=== PATIENT | male | born 2000 | race Caucasian/White ===

== ENCOUNTER 2020-11-10 15:53 | Emergency (ER) | payer OTHER, SELFPAY ==
[2020-11-10 15:54] VITALS: BP 140/93; PULSE 110; RESP 16; TEMP 37.4; O2SAT 100; BMI 60.0
[2020-11-10 16:30] LABS: Add Manual Diff / Slide Review NO; Basophils Absolute Auto 100 /uL (0-100); Basophils Percent Auto 0.6 % (0-2); Eosinophils Absolute Auto 100 /uL (0-450); Eosinophils Percent Auto 0.7 % (2-4); Hemoglobin 14.5 g/dL (13.5-17.5); Lymphocytes Absolute Auto 1900 /uL (1100-4500); Lymphocytes Percent Auto 15.8 % (25-40); Mean Corpuscular HGB Conc 33.6 % (30-36); Mean Corpuscular Hemoglobin 26.2 PG (26-34); Mean Corpuscular Volume 77.8 fL (80-100); Monocytes Absolute Auto 800 /uL (0-900); Monocytes Percent Auto 7.1 % (3-14); Neutrophils Absolute Auto 9000 /uL (1500-7000); Neutrophils Percent Auto 75.8 % (50-75); Platelet Count 324 X10^3/uL (150-400); Red Blood Cell Count 5.53 X10^6/uL (4.5-5.9); Red Cell Distribution Width 14.7 % (11.6-14.8); White Blood Cell Count 11.8 X10^3/uL (4.5-11.0)
--- NOTE | 2020-11-10 16:39 | ED_ITS ---
HPI - GI Bleed General Chief complaint: GI Bleed Stated complaint: RECTAL BLEEDING Time Seen by Provider: 11/10/20 15:58 Source: patient Mode of arrival: Ambulatory Limitations: no limitations History of Present Illness HPI Narrative: 20-year-old male nonsmoker with noncontributory medical history presents at the request of the walk-in clinic for evaluation of few episodes of painless bright red bleeding over the course of the day. He denies any symptoms and is not dizzy, weak or lightheaded. He denies any abdominal pain or rectal pain. He denies any history of the same. He denies any recent medication or dietary change. He denies any fever or chills. He has had no straining on the toilet or other symptoms. He had a bowel movement with some bright red blood yesterday and has had bowel movements that were normal since without any obvious blood. He had presented initially to the walk-in clinic and had a rectal exam without any obvious sign of internal or external hemorrhoid, his Hemoccult reported to be positive. He does not have an extensive alcohol history and denies use of blood thinners MD complaint: blood streaked stool Onset (ago): day(s) Severity: mild Relieving factors: none Associated symptoms: denies other symptoms Review of Systems Constitutional Constitutional: Denies chills, Denies fatigue, Denies fever(s), Denies frequent falls, Denies lethargy and Denies weakness Eyes Eyes: Denies change in vision, Denies eye discharge, Denies irritation and Denies loss of vision ENT Ears, Nose, Mouth, and Throat: Denies change in voice, Denies dizziness, Denies neck pain, Denies sore throat and Denies throat swelling Cardiovascular Cardiovascular: Denies chest pain, Denies irregular heart rhythm, Denies lightheadedness, Denies palpitations, Denies dyspnea, Denies dyspnea on exertion and Denies orthopnea Respiratory Respiratory: Denies cough, Denies dyspnea, Denies dyspnea on exertion and Denies wheezing Gastrointestinal Gastrointestinal: Denies abdominal pain, Denies change in bowel habits, Denies diarrhea, Denies nausea and Denies vomiting Musculoskeletal Musculoskeletal: Denies neck pain and Denies numbness Integumentary/Breasts Skin/Breast: Denies pruritus, Denies erythema, Denies rash and Denies wounds Neurologic Neurologic: Denies behavioral changes, Denies confusion, Denies dizziness, Denies frequent falls, Denies loss of vision, Denies numbness and Denies weakness Psychiatric Psychiatric: Denies anxiety, Denies behavioral changes, Denies confusion, Denies depression, Denies homicidal ideation and Denies suicidal ideation Endocrine Endocrine: Denies fatigue, Denies flushing and Denies palpitations Hematologic/Lymphatic Hematologic/Lymphatic: Denies easy bruising Allergic/Immunologic Allergic/Immunologic: Denies urticaria, Denies throat swelling and Denies wheezing Patient History Social History Smoking Status: Never smoker Smoking Status: Never smoker Substance Use Type: does not use Exam Narrative Exam Narrative: GENERAL: [20] year old patient appears stated age. Well- nourished, well-developed patient, in mild distress. HEAD: Atraumatic. Normocephalic. EYES: Pupils equal round and reactive. Extraocular motions intact. No scleral icterus. No injection or drainage. ENT: Nose without bleeding, purulent drainage. Throat without erythema, tonsillar hypertrophy or exudate. Airway patent. NECK: Trachea midline. Non tender CARDIOVASCULAR: Regular rate and rhythm without murmurs, gallops, or rubs. RESPIRATORY: Clear to auscultation. Breath sounds equal bilaterally. No wheezes, rales, or rhonchi. GASTROINTESTINAL: Abdomen soft, non-tender, nondistended. EXTREMITIES: No edema or joint tenderness. BACK: Nontender without deformity or crepitance. No flank tenderness. NEURO: AOx3. SKIN: No rash or erythema of visible areas Initial Vital Signs Initial Vital Signs: Vital Signs Temperature 99.3 F 11/10/20 15:54 Pulse Rate 110 H 11/10/20 15:54 Respiratory Rate 16 11/10/20 15:54 Blood Pressure 140/93 H 11/10/20 15:54 Pulse Oximetry 100 11/10/20 15:54 Course Orders Ordered: ED Orders 11/10/20 16:20 Basic Metabolic Panel Stat Complete Blood Count AUTO DIFF Stat Type and Screen Stat Vital Signs Vital signs: Vital Signs - 8 hr 11/10/20 15:54 Temperature 99.3 F Pulse Rate 110 H Respiratory Rate 16 Blood Pressure 140/93 H Pulse Oximetry 100 MDM - GI Bleed Lab Data Result diagrams: 11/10/20 16:20 11/10/20 16:20 Labs: Lab Results 11/10/20 11/10/20 11/10/20 Range/Units 16:20 16:20 16:20 WBC 11.8 H (4.5-11.0) X10^3/uL RBC 5.53 (4.5-5.9) X10^6/uL Hgb 14.5 (13.5-17.5) g/dL Hct 43.0 (41-53) % MCV 77.8 L (80-100) fL MCH 26.2 (26-34) PG MCHC 33.6 (30-36) % RDW 14.7 (11.6-14.8) % Plt Count 324 (150-400) X10^3/uL Neut % (Auto) 75.8 H (50-75) % Lymph % (Auto) 15.8 L (25-40) % [place] % (Auto) 7.1 (3-14) % Eos % (Auto) 0.7 L (2-4) % Baso % (Auto) 0.6 (0-2) % Neut # (Auto) 9000 H (0201-3858) /uL Lymph # (Auto) 1900 (5078-2978) /uL [place] # (Auto) 800 (0-900) /uL Eos # (Auto) 100 (0-450) /uL Baso # (Auto) 100 (0-100) /uL Sodium 143 (137-145) mmol/L Potassium 3.5 (3.4-5.1) mmol/L Chloride 107 (98-107) mmol/L Carbon Dioxide 24 (22-32) mmol/L BUN 15 (9-20) mg/dL Creatinine 0.82 (0.66-1.25) mg/dL Estimated GFR > 60.0 (>60) mL/min BUN/Creatinine Ratio 18.3 (6-22) Glucose 111 H (70-100) mg/dL Calcium 9.7 (8.4-10.2) mg/dL Blood Type O Negative Antibody Screen Negative Discharge Plan Departure Patient Disposition: Home Clinical Impression: Bright red rectal bleeding Instructions: Gastrointestinal Bleeding Activity Restrictions/Additional Instructions: *You have been diagnosed with [painless rectal bleeding with very reassuring physical exam, vital signs and blood work] *What to do: *Please continue to take your regular medications as directed. [ ] New medication prescriptions sent to your pharmacy: [ ] [ ] New medication written as a paper prescription [x ] No new medications given *Please follow up with the general surgeon listed below in 2-3 days, call for an appointment. Let them know you were seen in the Emergency Department and that we ask that you be seen in follow up. We will electronically transmit a record of today's note if your PCP is in our system * please consider a clear liquid diet for the next few days and advance as tolerated *Return to Emergency Department if you should have any new, worsening or concerning symptoms, such as [fever greater than 101 F, shaking chills, worsening bleeding, dizziness, weakness, lightheadedness worsening pain, persistent vomiting or other bothersome symptoms] Referrals: [facility] [Outside] Omari Colin MD [Physician] - Janet Rascon MD [Physician] -
[2020-11-10 16:49] LABS: BUN Creatinine Ratio 18.3 (6-22); Blood Urea Nitrogen 15 mg/dL (9-20); Calcium 9.7 mg/dL (8.4-10.2); Carbon Dioxide 24 mmol/L (22-32); Chloride 107 mmol/L (98-107); Estimated Glomerular Filt Rate > 60.0 mL/min (>60); Glucose 111 mg/dL (70-100); HEMOLYSIS < 15 (0-50); Potassium 3.5 mmol/L (3.4-5.1); Sodium 143 mmol/L (137-145)
[2020-11-10 16:57] VITALS: BP 140/90; PULSE 105; RESP 16; O2SAT 99
== END 2020-11-10 16:57 | disposition home or self-care (01) ==
PROVIDERS: Emergency Provider Emergency Medicine
DX: K62.5 Hemorrhage of anus and rectum (principal)
CPT/HCPCS: 36415; 80048; 85025; 86850; 86900; 86901; 99283

== ENCOUNTER → 2021-02-09 11:49 | Outpatient (CLI) | payer OTHER, SELFPAY ==
[2021-02-09 12:49] LABS: Hematocrit 41.7 % (41-53); Hemoglobin 14.2 g/dL (13.5-17.5); Mean Corpuscular Hemoglobin 26.6 PG (26-34); Mean Corpuscular Volume 78.3 fL (80-100); Platelet Count 296 X10^3/uL (150-400); Red Blood Cell Count 5.33 X10^6/uL (4.5-5.9); Red Cell Distribution Width 15.2 % (11.6-14.8); White Blood Cell Count 10.2 X10^3/uL (4.5-11.0)
[2021-02-09 13:06] LABS: Hemoglobin A1C% w Est Avg Glu 5.1 % (4.0-6.0)
[2021-02-09 13:23] LABS: Alanine Aminotransferase 46 IU/L (<50); Albumin 4.4 g/dL (3.5-5.0); Albumin Globulin Ratio 1.3 (1.0-2.8); Alkaline Phosphatase 97 U/L (38-126); Aspartate Aminotransferase 49 IU/L (17-59); BUN Creatinine Ratio 15.3 (6-22); Bilirubin Total 0.7 mg/dL (0.2-1.3); Blood Urea Nitrogen 11 mg/dL (9-20); Calcium 9.8 mg/dL (8.4-10.2); Carbon Dioxide 23 mmol/L (22-32); Chloride 109 mmol/L (98-107); Cholesterol 178 mg/dL (140-199); Estimated Glomerular Filt Rate > 60.0 mL/min (>60); Globulin 3.5 g/dL (1.7-4.1); Glucose 111 mg/dL (70-100); HDL Cholesterol 45 mg/dL (40-60); HEMOLYSIS < 15 (0-50); LDL Cholesterol Calculated 114 mg/dL (<100); Potassium 3.8 mmol/L (3.4-5.1); Sodium 141 mmol/L (137-145); Total Protein 7.9 g/dL (6.3-8.2); Triglycerides 95 mg/dL (35-150)
== END ==
PROVIDERS: PCP Registered Nurse Diabetes Educator; Referring Provider Registered Nurse Diabetes Educator; Visit Provider Registered Nurse Diabetes Educator
DX: E66.9 Obesity, unspecified (principal); Z68.43 Body mass index [BMI] 50.0-59.9, adult
CPT/HCPCS: 36415; 80053; 80061; 83036; 84443; 85027

== ENCOUNTER → 2021-04-06 12:30 | Outpatient (CLI) | payer OTHER, SELFPAY ==
--- NOTE | 2021-04-06 12:39 | DIET.PN1 ---
Dietary Progress Note Assessment: 21y M attending RD visit for help with morbid obesity. 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 Usual Day (working): wakes 6am and showers either skips breakfast or protein bar 24oz water shake (2 scoops Registered Respiratory Therapist Supps) 24oz water shake (1 scoop Registered Respiratory Therapist Supps) noon- air-fried chicken c BBQ sauce, sometimes fruit or protein bar, c 16oz water finishes work then goes home 4:30pm- often goes to gas station to get breanne sized candy bar starts sedentary time watches tv or plays video game does family dinner- protein, veg, starch or will eat some junk food or 2 hotdogs on buns c ketchup, mustard, relish eats a lot at night- right after dinner, a bedtime snack, or sometimes stays up too late so eats Physical activity: 8k steps Usual Day (non-working): wakes 10am breakfast- nachos, bowl cereal, protein bar sits at desk and plays video games all day has desk in garage so brings batch of food to garage and eats until needs to get more food often plays video games 11am-3am but if reasonable stops at 9-10pm hot dogs, nachos c polo neida cheese and salsa, chips, sandwiches No physical activity on non-work days. Doesn't like Fruits and Veggies: broccoli, asparagus, [place] sprouts, doesn't like the yogurt or apple sauce texture likes spinach, maryjane lettuce, kale, green beans, carrots, lloyd peppers, cucumbers, tomatoes, salsa, onions, garlic Protein foods likes: beef chicken, pork, collins, turkey, fish all kinds, peanut butter, blue trevor flavored almonds, cheese, 2% milk likes to use air fryer RD Impression: Pt has sedentary hobby (videogames) which is also his social time with friends from around the [place]. His sedentary hobby which he participates in for 6+ hours every day, drinking 1,000kcals soda, and mindless snacking while playing games all contributing to pts morbid obesity. Pt likes variety of healthy foods including variety of fruits and veggies, is willing to prepare food for self-up to a point- convenience is biggest barrier. Pt has reasonable clear goal to get down to 280#, pt is motivated. Pts cutting soda is saving him 1,000kcals/d with weight loss of 15# over 8w. Goals of meeting c pt over 6 visits include: nutrition education on balanced plate eating, portion control with mindfulness around calories throughout the day being sure to front load day to reduce night time cravings. Nutrition Diagnosis: morbid obesity r/t undesirable food choices and physical inactivity aeb BMI 58.1, pt has been >300# since 15yo, pt spends 6+ hrs playing video games daily while constantly snacking, high intake refined carbohydrates, low intake F/V. Interventions: 1. Educated pt on balanced plate eating including 1/4 PRO, 1/4 CHO, 1/2 fruit and non-starchy veggies. Worked c pt using food models to build commonly eaten items and collaborated on how to adjust composition to find better balance. 2. Set pts kcal level at 2,400/day to spur 2-3# weight loss each week. Using meal planning template, allotted 400kcals for breakfast, 600kcals for lunch, 800kcals for dinner and 500 kcals for snacks. Looked up kcal levels of commonly eaten foods for pt. Pt will work within this framework for next month at which point we can adjust. EER: 2400calories (1,000kcal deficit to induce weight loss) Monitoring/Evaluations: F/U in 4w to assess progress and problem solve barriers. Pt would like to get Vitamin D level tested related to psoriasis-does not supplement, little time spent outdoors. Electronically Signed by: Monae Hsieh 04/06/21 12:39 Clinical Dietitian [address] [id number]
[2021-04-06 13:16] VITALS: BMI 58.1
== END ==
PROVIDERS: PCP Registered Nurse Diabetes Educator; Referring Provider Registered Nurse Diabetes Educator; Visit Provider Registered Nurse Diabetes Educator
DX: E66.01 Morbid (severe) obesity due to excess calories (principal); Z68.43 Body mass index [BMI] 50.0-59.9, adult; Z71.3 Dietary counseling and surveillance
CPT/HCPCS: 97802

== ENCOUNTER → 2021-05-04 11:19 | Outpatient (CLI) | payer OTHER, SELFPAY ==
--- NOTE | 2021-05-04 11:32 | DIET.PN1 ---
Dietary Progress Note Assessment: 21y M attending 4w RD f/u for morbid obesity. Ht: 5'10 Wt: 396# (-10# in 1mo, -25# in 10w) BMI: 56.8 UBW: 421# Pt making excellent progress in nutrition care plan. Pt continues to avoid soda. Pt did admit to eating 16 small candies at Halloween but stopped consuming candy after the holiday was over so feels proud of himself. Pt has followed through with several interventions we set last month. Pt is focusing on eating meals instead of grazing throughout the day. He is following plate balance and experimenting with new food products. Pt tried shiratake noodles- into spaghetti, loves them. Very low calorie and high fiber important for both his weight and HLD. Pt preferring Angel's killer thin sliced bread to regular bread now. Pt is going to try chickpea noodles on reccs of his aunt. Pt started supplementing with Vitamin D daily, noticed he has not needed his psoriasis shampoo, does not really understand why his psoriasis is not flaring right now, but is very happy about this. Pt, his brother, and mother are all working on healthy eating. Pt feels this helps him make good choices and avoid not-so-good choices. Pt interested in starting an exercise routine, has weight training set at home, just hasn't started. Nutrition Diagnosis: ongoing morbid obesity r/t undesirable food choices and physical inactivity aeb BMI 58.1, pt has been >300# since 15yo, pt spends 6+ hrs playing video games daily while constantly snacking, high intake refined carbohydrates, low intake F/V. Interventions: 1. Reinforced pts progress thus far and changes made. 2. Introduced pt to hunger scale with goal of pt becoming more aware of true hunger and fullness as pt has historically snacked mindlessly. 3. Discussed pts desire to start working out. Walked through steps to begin routine together. Provided pt with behavior change worksheet in case he feels personal barriers to beginning or continuing exercise. Monitoring/Evaluations: f/u in 4w to continue education and problem solve barriers. Electronically Signed by: Monae Hsieh 05/04/21 11:32 Clinical Dietitian [address] [id number]
== END ==
PROVIDERS: PCP Registered Nurse Diabetes Educator; Referring Provider Registered Nurse Diabetes Educator; Visit Provider Registered Nurse Diabetes Educator
DX: E66.01 Morbid (severe) obesity due to excess calories (principal); Z68.43 Body mass index [BMI] 50.0-59.9, adult; Z71.3 Dietary counseling and surveillance
CPT/HCPCS: 97803

== ENCOUNTER → 2021-06-01 12:37 | Outpatient (CLI) | payer OTHER, SELFPAY ==
--- NOTE | 2021-06-01 12:53 | DIET.PN1 ---
Dietary Progress Note 21y M attending RD f/u for morbid obesity. Pt hovering around 395-400#, is still avoiding all soda, but felt he went backwards in progress since our last visit because of the and not working. Pt was ordering [employer]- Ca's is most common- he keeps installing and uninstalling it on his phone, choosing to use the sol when he is being lazy, generally in conjunction with long kayla sessions. Pt understands this is not a healthy choice and that realistically he could make something for himself in the 15-30 minutes he waits for fast food to be delivered. Discussed go to food for when he wants to order [employer]Dash: Kind Bars, [place] Cakes, chicken wings, honey crisp apples, sandwiches c thin sliced sourdough. Because pt usually orders chicken sandwich with fries, talked about finding a healthier chicken product to keep in freezer to pull out when tempted to order out. Intermittent use of Copier Repair Technician Supps. Discussed pt's default pattern when without work structure includes grazing on snacks and being in front of screen for 10+ hrs. Pt endorses staying up until 7am most days playing video games. Discussed exercise (walks and/or strength training) as way to build some structure into non-work days. Pt has equipment, discussed techniques with his dad and uncle over but has not started. Collaborated on plan to have pt and dad write out workout routine pt can follow for arm days, leg days, core days. F/u scheduled for during pts holiday break as way to check in on interventions. Electronically Signed by: Monae Hsieh 06/01/21 12:53 Clinical Dietitian [address] [address]
== END ==
PROVIDERS: PCP Registered Nurse Diabetes Educator; Referring Provider Registered Nurse Diabetes Educator; Visit Provider Registered Nurse Diabetes Educator
DX: E66.9 Obesity, unspecified (principal); Z71.3 Dietary counseling and surveillance
CPT/HCPCS: 97803

== ENCOUNTER → 2021-07-13 12:14 | Outpatient (CLI) | payer OTHER, SELFPAY ==
--- NOTE | 2021-07-13 12:19 | DIET.PN1 ---
Dietary Progress Note 21y M attending RD f/u for morbid obesity attending with mom. Pt current weight 392#, has been in high 380s, feeling good about his almost 30# weight loss thus far. Pt is counting calories, staying within his range, also has been weight training 4x/w for 5 weeks now. Pt feeling a difference in his posture and has been able to increase reps significantly. Pt has good support at home and is workout kade with mom in their home gym. Mom states she is impressed as pt is taking this all on himself and being accountable. Pt states a few slip ups with going back to work, some fast food meals and one full calorie soda. Pt would like to work one fast food meal per week into his meal plan as he has high temptation driving by fast food restaurants and feels complete avoidance is triggering to binge. Discussed strategies to avoid fast food including keeping snacks in car, driving alternate way to avoid main strip with fast food restaurants. Provided pt with body building meal plan to help support continued muscle to fat mass transformation and weight loss. F/u in 4w to assess progress and problem solve barriers. Pt feels meeting monthly with RD motivating for him, pt does NOT want to develop diabetes. Electronically Signed by: Monae Hsieh 07/13/21 12:19 Clinical Dietitian [address] [id number]
== END ==
PROVIDERS: PCP Registered Nurse Diabetes Educator; Referring Provider Registered Nurse Diabetes Educator; Visit Provider Registered Nurse Diabetes Educator
DX: E66.9 Obesity, unspecified (principal)
CPT/HCPCS: 97803

== ENCOUNTER → 2021-08-17 12:19 | Outpatient (CLI) | payer OTHER, SELFPAY ==
--- NOTE | 2021-08-17 12:46 | DIET.PN1 ---
Dietary Progress Note 21y M attending 5th monthly nutrition visit for help with morbid obesity. Pt weighs 389# today, down 33# from initiating care. Pt has hit plateau last month, however, this RD believes likely related to pt building new muscle mass masking fat loss. Pt strength training consistently 4d/w 30-40min each in home gym with his mom and brother. Pt really enjoys this activity and feels and sees the muscular changes especially in his shoulders and chest. Pt eating healthy dinners with family, using shiratake or chickpea noodles, mostly chicken. Pt limiting soda to one diet soda per week, no other caffeine. Pt eats fast food once per week. Pt still playing a lot of video games, socializing on a screen. Pt staying up until 3am again, has a meal around midnight, wondering if this is causing the lack of weight loss recently. Pt notices he has better eating habits when he has a regular work schedule. 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 Pt remains very motivated to continue healthy lifestyle and continue losing weight. Pt concerned we only have one more visit, feels monthly check ins with RD helpful for accountability, will ask PCP for insurance auth to see if we can get more visits. Pt has labs in 5w, we scheduled out f/u for after lab draw to see if we can fine tune any reccs based on new lab set. Interventions: 1. RD agrees pt should get PT job to help build a regular schedule. Pt is 21yo, RD encouraged pt to think about what skills he wants to build for future life. 2. Encouraged pt to add cardio to his weight training routine, will likely help him to burn more calories and burn more of his fat reserve. Encouraged 10 minutes stationary bike at start of workout and 10 minutes at workout midpoint. f/u in 6w to assess progress and problem solve barriers. Electronically Signed by: Monae Hsieh 08/17/21 12:46 Clinical Dietitian [address] [address]
== END ==
PROVIDERS: PCP Registered Nurse Diabetes Educator; Referring Provider Registered Nurse Diabetes Educator; Visit Provider Registered Nurse Diabetes Educator
DX: E66.01 Morbid (severe) obesity due to excess calories (principal); Z71.3 Dietary counseling and surveillance
CPT/HCPCS: 97803

== ENCOUNTER → 2021-09-18 12:34 | Outpatient (CLI) | payer OTHER, SELFPAY ==
[2021-09-18 14:12] LABS: Hemoglobin A1C% w Est Avg Glu 5.2 % (4.0-6.0)
[2021-09-18 14:59] LABS: Cholesterol 164 mg/dL (140-199); Glucose 103 mg/dL (70-100); HDL Cholesterol 42 mg/dL (40-60); LDL Cholesterol Calculated 104 mg/dL (<100); Triglycerides 89 mg/dL (35-150)
== END ==
PROVIDERS: PCP Registered Nurse Diabetes Educator; Referring Provider Registered Nurse Diabetes Educator; Visit Provider Registered Nurse Diabetes Educator
DX: R73.01 Impaired fasting glucose (principal)
CPT/HCPCS: 36415; 80061; 82947; 83036

== ENCOUNTER → 2021-10-05 12:18 | Outpatient (CLI) | payer OTHER, SELFPAY ==
--- NOTE | 2021-10-05 12:25 | DIET.PN1 ---
Dietary Progress Note RD Note: 1mo f/u for pt with borderline high cholesterol, impaired fasting glucose and morbid obesity (BMI 56). Pt recently got labs done, cholesterol slightly improved, FBG greatly improved 111 --> 103 with stable A1c at 5.2. Pt reports he gained 5# recently so back at 395#, attributes this to overeating and sedentary behavior. This weight gain spurred pt to start tracking in [employer] for calories in and out. Pt finds he eats about the same every day, but days he doesn't work out (3x/w) he does not burn nearly enough calories. Pt considering taking a walk on days he is not doing weight training. Pt doing well with weight training 4x/w, is intermittently riding stationary bike for 10min prior to workout based on our last conversation. Barrier to doing this is that his legs get tired. Pt and family alternating dinner cooking, they all focus on keto dinners, more or less. Pt has . Review of pts food log shows 1570-1812 calories in most days with macronutrient balance: 12-15% protein, 35-50% fat, 50% carbs. 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 He is eating breakfast at home then packing lunch but has cravings and habits built around grabbing take out/fast food after school. One meal on log showed 480 kcals in strawberry lemonade alone. Interventions: 1. Reinforced pts good behavior changes around exercise and newly tracking intake. Set goal to increase protein in diet, goal macros 25-35% pro, 35-50% fat, 30-40% cho. 2. Conducted behavior change counseling regarding habit of getting fast food after school. Pt will try several strategies to reduce this craving and habit including: packing larger lunch with more protein and protein snack, choose a few safe items from drug store or restaurant to order if he finds himself in line- including unsweet iced tea c lemon, iced green tea, beef jerky. Pt will experiment and report back next visit what seems to work and what doesn't. Monitoring/Evaluations: f/u in 5w to continue nutrition counseling Electronically Signed by: Monae Hsieh 10/05/21 12:25 Clinical Dietitian [address] [address]
== END ==
PROVIDERS: PCP Registered Nurse Diabetes Educator; Referring Provider Registered Nurse Diabetes Educator; Visit Provider Registered Nurse Diabetes Educator
DX: E66.01 Morbid (severe) obesity due to excess calories (principal); R73.01 Impaired fasting glucose; E78.00 Pure hypercholesterolemia, unspecified; Z68.43 Body mass index [BMI] 50.0-59.9, adult; Z71.3 Dietary counseling and surveillance
CPT/HCPCS: 97803

== ENCOUNTER → 2022-03-09 10:29 | Outpatient (CLI) | payer OTHER, SELFPAY ==
[2022-03-09 12:24] LABS: Cholesterol 151 mg/dL (140-199); Glucose 100 mg/dL (70-100); HDL Cholesterol 43 mg/dL (40-60); LDL Cholesterol Calculated 92 mg/dL (<100); Triglycerides 80 mg/dL (35-150)
[2022-03-09 12:33] LABS: Hemoglobin A1C% w Est Avg Glu 5.2 % (4.0-6.0)
== END ==
PROVIDERS: PCP Registered Nurse Diabetes Educator; Referring Provider Registered Nurse Diabetes Educator; Visit Provider Registered Nurse Diabetes Educator
DX: E78.5 Hyperlipidemia, unspecified (principal); R73.01 Impaired fasting glucose
CPT/HCPCS: 36415; 80061; 82947; 83036

== ENCOUNTER → 2022-05-28 09:04 | Outpatient (CLI) | payer OTHER, SELFPAY ==
--- NOTE | 2022-05-28 09:05 | DI.RAD.S_ITS ---
PROCEDURE: XR CHEST 2V INDICATIONS: Cough TECHNIQUE: 2 views of the chest were acquired. COMPARISON: None. FINDINGS: Surgical changes and devices: None. Lungs and pleura: No lobar consolidation. Angular opacity present at the right cardiac border/medial right lung base on the frontal view. No pleural effusions or pneumothorax. Mediastinum: Heart size is normal. Bones and chest wall: No suspicious bony abnormalities. Soft tissues appear unremarkable. IMPRESSION: 1. No lobar consolidation visualized. 2. Angular opacity is present along the right cardiac border/medial right lung base, nonspecific. This could be related to atelectasis/partial lobar collapse, artifact, airspace disease/infiltrate or other etiology. Could consider follow-up radiographs to assess for persistence or resolution, such as in 6-8 weeks or other interval at clinical discretion. Dictated by: Kamari Cardoso M.D. on 05/28/2022 at 10:38 Approved by: Kamari Cardoso M.D. on 05/28/2022 at 11:18
== END ==
PROVIDERS: PCP Registered Nurse Diabetes Educator; Referring Provider Nurse Practitioner Family; Visit Provider Nurse Practitioner Family
DX: R05.9 Cough, unspecified (principal)
CPT/HCPCS: 71046

== ENCOUNTER → 2022-06-10 15:59 | Outpatient (CLI) | payer OTHER, SELFPAY ==
--- NOTE | 2022-06-10 16:01 | DI.RAD.S_ITS ---
PROCEDURE: XR CHEST 2V INDICATIONS: cough/shortness of breath/R/O pneumonia TECHNIQUE: 2 views of the chest were acquired. COMPARISON: , CR, XR CHEST 2V, 05/28/2022, 9:11. FINDINGS: Surgical changes and devices: None. Lungs and pleura: No pleural effusion or pneumothorax. No consolidation visualized. Mediastinum: Mediastinal and hilar contours appear similar to before. Cardiac silhouette is within normal limits for size. Bones and chest wall: No suspicious bony abnormalities. Soft tissues appear unremarkable. IMPRESSION: 1. No lobar consolidation visualized. 2. Redemonstrated angular opacity along the right cardiac border/medial right lung base, nonspecific. This could be related to atelectasis/partial lobar collapse, artifact, airspace disease/infiltrate or other etiology. Could consider follow-up radiographs to assess for persistence or resolution, such as in 6-8 weeks or other interval at clinical discretion. Dictated by: Kamari Cardoso M.D. on 06/10/2022 at 16:23 Approved by: Kamari Cardoso M.D. on 06/10/2022 at 16:26
== END ==
PROVIDERS: PCP Registered Nurse Diabetes Educator; Referring Provider Registered Nurse Diabetes Educator; Visit Provider Registered Nurse Diabetes Educator
DX: R05.9 Cough, unspecified (principal); R06.02 Shortness of breath
CPT/HCPCS: 71046

== ENCOUNTER → 2022-07-24 12:17 | Outpatient (CLI) | payer OTHER, SELFPAY ==
--- NOTE | 2022-07-24 12:20 | DI.RAD.S_ITS ---
PROCEDURE: XR CHEST 2V INDICATIONS: f/u abnormal cxr TECHNIQUE: 2 views of the chest were acquired. COMPARISON: [facility], CR, XR CHEST 2V, 05/28/2022, 9:11. [facility], CR, XR CHEST 2V, 06/10/2022, 16:07. FINDINGS: Surgical changes and devices: None. Lungs and pleura: Lungs are clear. No pleural effusions or pneumothorax. Mediastinum: Persistent angular prominence of the right cardiac border is again seen. Heart size is normal. Bones and chest wall: No suspicious bony abnormalities. Soft tissues appear unremarkable. IMPRESSION: There is persistent angular prominence of the right cardiac border. This is felt most likely to be related to a benign finding. If clinically appropriate, please consider a follow-up CT for further evaluation. Dictated by: Sb Davalos M.D. on 07/24/2022 at 11:49 Approved by: Sb Davalos M.D. on 07/24/2022 at 11:50
== END ==
PROVIDERS: PCP Registered Nurse Diabetes Educator; Referring Provider Registered Nurse Diabetes Educator; Visit Provider Registered Nurse Diabetes Educator
DX: R93.89 Abnormal findings on diagnostic imaging of other specified body structures (principal)
CPT/HCPCS: 71046

== ENCOUNTER → 2022-08-04 08:58 | Outpatient (CLI) | payer OTHER, SELFPAY ==
--- NOTE | 2022-08-04 09:08 | DI.CT.S_ITS ---
PROCEDURE: CT CHEST W CON INDICATIONS: f/u abnormal CXR TECHNIQUE: After the administration of intravenous contrast, 5 mm thick sections acquired from the pulmonary apices to the posterior costophrenic angles. 1 mm axial lung, 5 mm thick coronal and sagittal reformats and 7 mm axial MIP were acquired. For radiation dose reduction, the following was used: automated exposure control, adjustment of mA and/or kV according to patient size. COMPARISON: [facility], CR, XR CHEST 2V, 07/24/2022, 12:24. FINDINGS: Image quality: Excellent. Lungs and pleura: No acute air space opacities. No pleural effusions or pneumothorax. Central and peripheral airways are patent and normal in caliber. Mediastinum: Heart size is normal. No pericardial effusion. No mediastinal or hilar adenopathy by size criteria. Thoracic aorta and central pulmonary arteries are normal in size. Esophagus is normal in caliber. No hiatal hernia. There is a moderate amount of pericardial fat. This is reflected on the plain film dated July 24, 2022 by the angular margin associated with the right cardiac shadow. No suspicious mediastinal mass lesions. Bones and chest wall: No suspicious bony lesions. No vertebral body compression fractures. No axillary or supraclavicular adenopathy by size criteria. Thyroid gland is unremarkable . Abdomen: Visualized upper abdominal solid organs appear normal. Upper abdominal bowel loops are normal in caliber. IMPRESSION: 1. Unremarkable CT of the chest. 2. Pericardial fat likely represents the questionable abnormality on the associated plain film dated July 24, 2022. Dictated by: Gabbie Harry M.D. on 08/04/2022 at 10:02 Approved by: Gabbie Harry M.D. on 08/04/2022 at 10:04
== END ==
PROVIDERS: PCP Registered Nurse Diabetes Educator; Referring Provider Registered Nurse Diabetes Educator; Visit Provider Registered Nurse Diabetes Educator
DX: R93.89 Abnormal findings on diagnostic imaging of other specified body structures (principal)
CPT/HCPCS: 71260

== ENCOUNTER → 2022-08-12 06:39 | Outpatient (CLI) | payer OTHER, SELFPAY ==
--- NOTE | 2022-08-12 06:41 | DI.ECHO.S_ITS ---
[facility] +---------+ : : [address] : [place] : : : : [id number] : : : : Phone: [phone]---------+ Echocardiogram Report + + :Name: GEOVANI HAWLEY Study Date: 08/12/2022 Height: 70 in : :[facility] ReadingLocation: Weight: 420 lb : : Gender: Male BSA: 2.9 m2 : :: 2000 Age: 22 yrs BP: 142/89 mmHg: :Reason For Study: Abnormal chest CT, pericardial fat seen on : :chest CT : :Ordering Physician: JARRETT, : :RYLAND Performed By: Jessica Miranda : :Referring: RYLAND FARIAS : + + Interpretation Summary The study quality was technically difficult. The left ventricle is normal in size and wall thickness. The ejection fraction is estimated to be 60-65%. The right ventricle is normal in size and function. All the valves were not well seen however no significant valvular pathology seen. The IVC is of normal diameter and collapses less than 50% with a sniff. This suggests a right atrial pressure of 8 mm Hg. There is an anterior echo-free space consistent with a fat pad. Cannot rule out some pericardial thickening however, Lat Peak E' Doron: 20.2 cm/sec E/E' lat: 6.8. Preserved lateral mitral annulus tissue Doppler velocity goes against any significant pericardial pathology like constrictive pericarditis. No significant pericardial effusion seen. IVC is not dilated. Procedure: A two-dimensional transthoracic echocardiogram with color flow and Doppler was performed. The study quality was technically difficult. The patient was in sinus bradycardia with heart rates between 71-86 bpm during the exam. Left Ventricle: The left ventricle is normal in size and wall thickness. The ejection fraction is estimated to be 60-65%. There are no obvious focal wall motion abnormalities noted but poor endocardial definition reduces the sensitivity for the detection of such. Diastolic parameters suggest probable normal left ventricular diastolic function and normal filling pressures. Right Ventricle: The right ventricle is normal in size and function. Atria: The left atrial size is normal. Right atrial size is normal. There is no Doppler evidence for an interatrial shunt. Mitral Valve: The mitral valve is normal in structure and function. There is no mitral regurgitation noted. Aortic Valve: The aortic valve is grossly normal. There is no aortic valve stenosis. No aortic regurgitation is present. Tricuspid Valve: The tricuspid valve is not well visualized, but is grossly normal. No tricuspid regurgitation. Pulmonary artery pressures cannot be estimated because of the lack of a measurable TR jet velocity. Pulmonic Valve: The pulmonic valve is not well visualized. There is no pulmonic valvular regurgitation. Great Vessels: The ascending aorta is normal in size. The IVC is of normal diameter and collapses less than 50% with a sniff. This suggests a right atrial pressure of 8 mm Hg. Pericardium/ Pleura There is no pericardial effusion. There is an anterior echo-free space consistent with a fat pad. MMode/2D Measurements & Calculations LVIDd: 4.7 cm LVOT diam: 2.1 cm LVIDs: 3.0 cm Ao root diam: 3.0 cm FS: 36.2 % asc Aorta Diam: 2.9 cm IVSd: 0.60 cm LVPWd: 0.90 cm LV leal. diameter/BSA (cm/m^2): 1.6 LV sys. diameter/BSA (cm/m^2): 1.0 LA dimension: 3.4 cm RA long axis: 4.1 cm LA A2 area: 16.4 cm2 RA area: 11.2 cm2 LA A4 area: 12.9 cm2 RA vol: 25.8 ml LA length (vol): 4.5 cm RA : 9.0 ml/m2 LA vol: 40.4 ml LA vol index: 14.1 ml/m2 RVD1 (basal): 3.9 cm LVLs ap4: 5.8 cm LVLd ap2: 7.4 cm TAPSE_phl: 1.7 cm LVLs ap2: 6.1 cm Doppler Measurements & Calculations Ao V2 max: 116.0 cm/sec LVOT Max Doron: 96.5 cm/sec Ao V2 mean: 86.5 cm/sec LV V1 max P.7 mmHg Ao max P.0 mmHg LV V1 VTI: 21.3 cm Ao mean P.0 mmHg SHAUN(I,D): 3.2 cm2 Ao V2 VTI: 23.4 cm SHAUN(V,D): 2.9 cm2 sev ratio: 0.91 SHAUN indexed to BSA (cm^2/m^2): 1.1 MV E max doron: 138.0 cm/sec PA V2 max: 103.0 cm/sec MV A max doron: 46.5 cm/sec PA V2 mean: 70.3 cm/sec MV E/A: 3.0 PA mean P.0 mmHg Med Peak E' Doron: 12.6 cm/sec E/E' med: 11.0 Lat Peak E' Doron: 20.2 cm/sec E/E' lat: 6.8 E/e' average: 8.9 MV dec time: 0.19 sec MVA(VTI): 2.7 cm2 MV V2 mean: 70.5 cm/sec SV(LVOT): 73.8 ml MV mean P.0 mmHg MV V2 VTI: 27.4 cm AV VR_phl: 0.83 MV P1/2t-pr_phl: 55.0 msec SHAUN(VTI)/BSA_phl: 1.1 Reading Physician:02:01 PM
== END ==
PROVIDERS: PCP Registered Nurse Diabetes Educator; Referring Provider Registered Nurse Diabetes Educator; Visit Provider Registered Nurse Diabetes Educator
DX: I51.5 Myocardial degeneration (principal); R93.89 Abnormal findings on diagnostic imaging of other specified body structures
CPT/HCPCS: 93306

== ENCOUNTER → 2022-11-30 08:31 | Outpatient (CLI) | payer OTHER, SELFPAY ==
[2022-11-30 09:02] LABS: Hematocrit 39.7 % (41-53); Hemoglobin 13.5 g/dL (13.5-17.5); Mean Corpuscular Hemoglobin 26.5 PG (26-34); Mean Corpuscular Volume 77.9 fL (80-100); Platelet Count 309 X10^3/uL (150-400); Red Blood Cell Count 5.09 X10^6/uL (4.5-5.9); White Blood Cell Count 9.1 X10^3/uL (4.5-11.0)
[2022-11-30 09:15] LABS: Alanine Aminotransferase 42 IU/L (<50); Albumin 4.3 g/dL (3.5-5.0); Albumin Globulin Ratio 1.2 (1.0-2.8); Alkaline Phosphatase 102 U/L (38-126); Aspartate Aminotransferase 35 IU/L (17-59); BUN Creatinine Ratio 16.7 (6-22); Bilirubin Total 0.6 mg/dL (0.2-1.3); Blood Urea Nitrogen 13 mg/dL (9-20); Calcium 9.2 mg/dL (8.4-10.2); Carbon Dioxide 25 mmol/L (22-32); Chloride 104 mmol/L (98-107); Cholesterol 166 mg/dL (140-199); Estimated Glomerular Filt Rate > 60 mL/min (>60); Globulin 3.7 g/dL (1.7-4.1); Glucose 112 mg/dL (70-100); HDL Cholesterol 41 mg/dL (40-60); HEMOLYSIS < 15 (0-50); LDL Cholesterol Calculated 104 mg/dL (<100); Potassium 3.9 mmol/L (3.4-5.1); Sodium 138 mmol/L (137-145); Triglycerides 104 mg/dL (35-150)
[2022-11-30 10:07] LABS: TSH w/ Reflex to FT4 2.33 uIU/mL (0.47-4.68)
[2022-12-01 05:44] LABS: x Labcorp Estim. Avg Glu (eAG) 111 mg/dL (.); x Labcorp Hemoglobin A1c 5.5 % (4.8-5.6)
== END ==
PROVIDERS: PCP Registered Nurse Diabetes Educator; Referring Provider Registered Nurse Diabetes Educator; Visit Provider Registered Nurse Diabetes Educator
DX: E78.5 Hyperlipidemia, unspecified (principal); F50.81 Binge eating disorder; R73.01 Impaired fasting glucose
CPT/HCPCS: 36415; 80053; 80061; 83036; 84443; 85027

== ENCOUNTER → 2023-07-27 10:50 | Outpatient (CLI) | payer OTHER, SELFPAY | PROVIDERS: PCP Registered Nurse Diabetes Educator; Visit Provider Physician Assistant | DX: J02.9 Acute pharyngitis, unspecified (principal); R21 Rash and other nonspecific skin eruption | CPT/HCPCS: 87081 ==

== ENCOUNTER → 2023-08-10 18:40 | Outpatient (CLI) | payer OTHER, SELFPAY ==
[2023-08-10 22:46] LABS: Influenza A - CEPHEID Flu A NEGATIVE (NEGATIVE); Influenza B - CEPHEID Flu B NEGATIVE (NEGATIVE); Respiratory Syncytial Virus Negative (Negative)
[2023-08-10 22:51] LABS: COVID-19 CEPHEID 4-PLEX PCR Negative (Negative)
== END ==
PROVIDERS: PCP Registered Nurse Diabetes Educator; Visit Provider Nurse Practitioner Family
DX: R05.1 Acute cough (principal); J02.9 Acute pharyngitis, unspecified
CPT/HCPCS: 0241U; 87070